=== PATIENT | female | born 1935 | race Caucasian/White ===

== ENCOUNTER 2021-02-16 10:28 | Emergency (ER) | payer MEDICARE, BC ==
[~2021-02-16] VITALS: Ht 165.1 cm; Wt 68.0 kg
[~2021-02-16 10:28] MED LIST: ESOM40CA49 PO; FERR324T4 PO; LEVO50TA8 PO; MULT-620 PO; RALO60TA PO; TAM75C PO
[2021-02-16 10:44] VITALS: BP 136/84
[2021-02-17] MEDS ORDERED: HYDR-3972 PO (14:03)
[2021-02-17] MEDS ORDERED: ALEN70TA14 PO (14:03)
[2021-02-17] MEDS ORDERED: OLME40TA13 PO (14:03)
[2021-02-17] MEDS ORDERED: LEVO50TA8 PO (14:03)
[2021-02-17] MEDS ORDERED: ESCI-8 PO (14:03)
[2021-02-17] MEDS ORDERED: DICL100G30 TOP (14:05)
[2021-02-17] MEDS ORDERED: ANAS1TAB24 PO (14:07)
[2021-02-19] MEDS ORDERED: LEVO500T90 PO (11:28)
[2021-02-19] MEDS ORDERED: PRED10TA23 PO (11:28)
== END 2021-02-16 13:24 | disposition home or self-care (01) ==
LOC: ER 10:29
DX: Z20.822 Contact with and (suspected) exposure to COVID-19 (principal)
CPT/HCPCS: 87635; 99283; C9803